=== PATIENT | male | born 1975 | race Caucasian/White ===

== ENCOUNTER 2022-05-24 13:56 | Day surgery (SDC) | payer BC ==
[~2022-05-24] VITALS: Ht 173 cm; Wt 86.0 kg
[2022-05-24 14:29] LABS: BASOPHILS % (AUTO) 0 % (0-10); EOSINOPHILS # (AUTO) 0.1 10^3/uL (0.0-0.3); EOSINOPHILS % (AUTO) 0 % (0-10); HEMATOCRIT 49 % (40-54); HEMOGLOBIN 17.4 g/dL (13.3-17.7); LYMPHOCYTES # (AUTO) 1.3 10^3/uL (1.0-4.0); LYMPHOCYTES % (AUTO) 9 % (12-44); MEAN CORPUSCULAR HEMOGLOBIN 30 pg (25-34); MEAN CORPUSCULAR HGB CONC 35 g/dL (32-36); MEAN CORPUSCULAR VOLUME 86 fL (80-99); MONOCYTES # (AUTO) 0.8 10^3/uL (0.0-1.0); MONOCYTES % (AUTO) 6 % (0-12); NEUTROPHILS # (AUTO) 12.5 10^3/uL (1.8-7.8); NEUTROPHILS % (AUTO) 85 % (42-75); PLATELET COUNT 313 10^3/uL (130-400); WHITE BLOOD COUNT 14.8 10^3/uL (4.3-11.0)
[2022-05-24] MEDS ORDERED: ONDANSETRON 4 MG/2 ML (SDV) Z0FRAN IVP ONE (14:30)
[2022-05-24] MEDS ORDERED: NS IV 1000 ML 1,000 ML IV SCH (14:30)
[2022-05-24] MEDS ORDERED: fentaNYL INJ 100 MCG/2 ML AMP IVP ONE ×3 (14:30→15:45)
[2022-05-24 14:34] LABS: ALBUMIN 4.7 GM/DL (3.2-4.5); CHLORIDE 102 MMOL/L (98-107); POTASSIUM 4.2 MMOL/L (3.6-5.0); SODIUM 137 MMOL/L (135-145)
[2022-05-24 14:35] LABS: CALCIUM 9.6 MG/DL (8.5-10.1)
[2022-05-24 14:36] LABS: GLUCOSE 108 MG/DL (70-105)
[2022-05-24 14:37] LABS: TOTAL PROTEIN 7.7 GM/DL (6.4-8.2)
[2022-05-24 14:38] LABS: BILIRUBIN,TOTAL 1.3 MG/DL (0.1-1.0); CARBON DIOXIDE 22 MMOL/L (21-32)
--- NOTE | 2022-05-24 14:38 | ED General ---
General Chief Complaint: Abdominal/GI Problems Stated Complaint: BACK/ABD PAIN,CRAMPING Nursing Triage Note: PT STATES UPPER ABD AND BACK PAIN/CRAMPING, EPISODES OF TACHYCARDIA EVERY NOW AND THEN FOR ABOUT A MONTH. NO SLEEP FOR 2 DAYS, [place] Source of Information: Patient Exam Limitations: No Limitations (JESSICA SPAULDING MED STUDENT) History of Present Illness Date Seen by Provider: May 24, 2022 Time Seen by Provider: 14:26 Initial Comments Sebastian Padilla is a 46 yo male who presents for epigastric abdominal pain/cramping and palpitations. Pt has no past medical hx and takes no medications. Pt reports [place] and started having sharp cramping epigastric and back pain last night, so he got a cab back here today to seek medical care. He has never had pain like this before and rates it a 10/10. He has associated nausea and vomiting with the abdominal and back pain. He states the pain is constant and he got no sleep last night. He tried Tums and Aleve with no relief. Nothing makes the pain worse. He denies any changes to bowel habits. He had a BM this morning that was normal for him. He last ate a sandwich yesterday and denies eating or drinking anything abnormal. Denies fever, chills, recent illness or sick contacts. Pt has hx of acid reflux and heartburn when eating spicy foods, but not regularly and he has never taken anything for this. Pt reports he has also had heart palpitations for the last year that are intermittent and associated with lightheadedness. When this occurs he has to sit down because he feels like he is going to pass out. Pt denies chest pain with these episodes. Pt denies any hx of cardiovascular disease in himself or family. He does not regularly follow up with a PCP and can't recall the last time he saw anyone. Timing/Duration: 1 Day Associated Systoms: Nausea/Vomiting (JESSICA SPAULDING MED STUDENT) Allergies and Home Medications Allergies Coded Allergies: No Known Drug Allergies (Unverified , 05/24/22) Patient Home Medication List Home Medication List Reviewed: Yes (BRIANNA RIOS MD) Review of Systems Review of Systems Constitutional: No chills, No fever EENTM: No blurred vision, No vision loss Respiratory: No cough, No short of breath Cardiovascular: No chest pain; palpitations Gastrointestinal: abdominal pain; No constipation, No diarrhea; nausea, vomiting Genitourinary: No dysuria, No frequency Musculoskeletal: back pain; No joint swelling Skin: No lesions, No lumps, No rash; other Psychiatric/Neurological: Denies Headache, Denies Numbness, Denies Weakness Hematologic/Lymphatic: No Symptoms Reported Immunological/Allergic: no symptoms reported (JESSICA SPAULDING) Past Qtbatrc-Uccqje-Drzphi Hx Patient Social History Tobacco Use?: No Substance use?: No Alcohol Use?: No (JESSICA SPAULDING STUDENT) Past Medical History Surgery/Hospitalization HX: NO MEDICAL HX REPORTED (JESSICA SPAULDING) Physical Exam Vital Signs Vital Signs - First Documented 05/24/22 14:08 Temp 36.5 Pulse 93 Resp 18 B/P (MAP) 140/106 (117) Pulse Ox 98 O2 Delivery Room Air (BRIANNA RIOS MD) Vital Signs Capillary Refill : (JESSICA SPAULDING) Height, Weight, BMI Height: '" Weight: lbs. oz. kg; 28.00 BMI Method: General Appearance: No Apparent Distress, WD/WN HEENT: PERRL/EOMI Neck: Full Range of Motion, Normal Inspection Respiratory: Chest Non Tender, Lungs Clear Cardiovascular: No Murmur, Tachycardia Gastrointestinal: Normal Bowel Sounds, Non Tender, Guarding, Tenderness (mildly tender to palpation in epigastric region) Back: Normal Inspection, Vertebral Tenderness (T6-T8 tenderness to palpation) Extremity: Non Tender, No Pedal Edema Neurologic/Psychiatric: Alert, Oriented x3, Normal Mood/Affect Skin: Normal Color, Warm/Dry Lymphatic: No Adenopathy (JESSICA SPAULDING [email or web address] STUDENT) Progress/Results/Core Measures Suspected Sepsis SIRS Temperature: Pulse: 93 Respiratory Rate: 18 Blood Pressure 140 /106 Mean: 117 (JESSICA SPAULDING [email or web address] STUDENT) Results/Orders Lab Results Laboratory Tests Test 05/24/22 14:14 05/24/22 14:50 Range/Units White Blood Count 14.8 H 4.3-11.0 10^3/uL Red Blood Count 5.73 H 4.30-5.52 10^6/uL Hemoglobin 17.4 13.3-17.7 g/dL Hematocrit 49 40-54 % Mean Corpuscular Volume 86 80-99 fL Mean Corpuscular Hemoglobin 30 25-34 pg Mean Corpuscular Hemoglobin Concent 35 32-36 g/dL Red Cell Distribution Width 12.6 10.0-14.5 % Platelet Count 313 130-400 10^3/uL Mean Platelet Volume 8.0 L 9.0-12.2 fL Immature Granulocyte % (Auto) 1 % Neutrophils (%) (Auto) 85 H 42-75 % Lymphocytes (%) (Auto) 9 L 12-44 % Monocytes (%) (Auto) 6 0-12 % Eosinophils (%) (Auto) 0 0-10 % Basophils (%) (Auto) 0 0-10 % Neutrophils # (Auto) 12.5 H 1.8-7.8 10^3/uL Lymphocytes # (Auto) 1.3 1.0-4.0 10^3/uL Monocytes # (Auto) 0.8 0.0-1.0 10^3/uL Eosinophils # (Auto) 0.1 0.0-0.3 10^3/uL Basophils # (Auto) 0.0 0.0-0.1 10^3/uL Immature Granulocyte # (Auto) 0.1 0.0-0.1 10^3/uL Neutrophils % (Manual) 83 % Lymphocytes % (Manual) 9 % Monocytes % (Manual) 5 % Eosinophils % (Manual) 1 % Band Neutrophils 2 % Blood Morphology Comment NORMAL Sodium Level 137 135-145 MMOL/L Potassium Level 4.2 3.6-5.0 MMOL/L Chloride Level 102 98-107 MMOL/L Carbon Dioxide Level 22 21-32 MMOL/L Anion Gap 13 5-14 MMOL/L Blood Urea Nitrogen 11 7-18 MG/DL Creatinine 0.81 0.60-1.30 MG/DL Estimat Glomerular Filtration Rate 111 BUN/Creatinine Ratio 14 Glucose Level 108 H 70-105 MG/DL Calcium Level 9.6 8.5-10.1 MG/DL Corrected Calcium 8.5-10.1 MG/DL Total Bilirubin 1.3 H 0.1-1.0 MG/DL Aspartate Amino Transf (AST/SGOT) 32 5-34 U/L Alanine Aminotransferase (ALT/SGPT) 56 H 0-55 U/L Alkaline Phosphatase 51 40-136 U/L Total Protein 7.7 6.4-8.2 GM/DL Albumin 4.7 H 3.2-4.5 GM/DL Lipase 21 8-78 U/L Urine Color YELLOW Urine Clarity CLEAR Urine pH 5.5 5-9 Urine Specific Hawkins 1.010 L 1.016-1.022 Urine Protein NEGATIVE NEGATIVE Urine Glucose (UA) NEGATIVE NEGATIVE Urine Ketones 1+ H NEGATIVE Urine Nitrite NEGATIVE NEGATIVE Urine Bilirubin NEGATIVE NEGATIVE Urine Urobilinogen 0.2 < = 1.0 MG/DL Urine Leukocyte Esterase TRACE H NEGATIVE Urine RBC (Auto) NEGATIVE NEGATIVE Urine RBC NONE /HPF Urine WBC RARE /HPF Urine Crystals NONE /LPF Urine Bacteria NEGATIVE /HPF Urine Casts NONE /LPF Urine Mucus NEGATIVE /LPF Urine Culture Indicated NO (BRIANNA RIOS MD) My Orders Orders - BRIANNA RIOS MD Comprehensive Metabolic Panel (05/24/22 14:22) Lipase (05/24/22 14:22) Ua Culture If Indicated (05/24/22 14:22) Cbc With Automated Diff (05/24/22 14:22) Fentanyl Inj (Sublimaze Injection) (05/24/22 14:30) Ns Iv 1000 Ml (Sodium Chloride 0.9%) (05/24/22 14:30) Ondansetron Injection (Zofran Injectio (05/24/22 14:30) Manual Differential (05/24/22 14:14) Ct Abdomen/Pelvis Wo (05/24/22 14:51) Fentanyl Inj (Sublimaze Injection) (05/24/22 15:45) (BRIANNA RIOS MD) Medications Given in ED Current Medications Medications Dose Ordered Sig/Dio Route Start Time Stop Time Status Last Admin Dose Admin Fentanyl Citrate 50 mcg ONCE ONCE IVP 05/24/22 14:30 05/24/22 14:31 DC 05/24/22 14:35 50 MCG Fentanyl Citrate 50 mcg ONCE ONCE IVP 05/24/22 15:45 05/24/22 15:46 DC 05/24/22 15:49 50 MCG Ketorolac Tromethamine 15 mg ONCE ONCE IVP 05/24/22 15:45 05/24/22 15:46 DC 05/24/22 15:49 15 MG Ondansetron HCl 8 mg ONCE ONCE IVP 05/24/22 14:30 05/24/22 14:31 DC 05/24/22 14:35 8 MG (BRIANNA RIOS MD) Vital Signs/I&O 05/24/22 05/24/22 14:08 14:35 Temp 36.5 36.5 Pulse 93 Resp 18 B/P (MAP) 140/106 (117) Pulse Ox 98 O2 Delivery Room Air (BRIANNA RIOS MD) Vital Signs/I&O Capillary Refill : (JESSICA SPAULDING MED STUDENT) Blood Pressure Mean: 117 Progress Note : Time: 16:18 Progress Note 46-year-old male presents with a chief complaint of epigastric abdominal pain, nausea vomiting. Last oral intake was some fluids at around 10:00 this morning. Has not eaten since yesterday evening. No prior surgeries on his abdomen. No fevers, chills. No diarrhea, black or bloody stools. No complaints. Past medical history significant for GERD and he takes as needed Tums. He did try some Aleve without relief of symptoms. He is also been experiencing some palpitations over the course of the last year. No chest pain today. No shortness of breath. Evaluation in the ED includes physical exam, basic laboratory studies and CT of the abdomen and pelvis without contrast. Findings show a leukocytosis of 14,000 with a mildly elevated total bilirubin and CT positive findings for pericholecystic fluid. Case was discussed with Dr. GEORGE, recommends admission, clear liquids until midnight, Cipro Flagyl pain management. He will evaluate tomorrow morning. Patient has been advised of the findings and is agreeable with admission. (BRIANNA RIOS MD) Departure Communication (Admissions) Time/Spoke to Admitting Phy: 16:[address] George; fluids, clears, NPO after mn, cipro flagyl (BRIANNA RIOS MD) Impression Primary Impression: Acute cholecystitis Disposition: HOME, SELF-CARE Condition: Stable Admissions Decision to Admit Reason: Admit from ER (General) Decision to Admit/Date: May 24, 2022 Time/Decision to Admit Time: 16:18 (BRIANNA RIOS MD) Departure-Patient Inst. Referrals: NO,LOCAL PHYSICIAN (PCP/Family) Primary Care Physician Verification and Attestation of Medical Student E/M Service A medical student performed and documented this service in my presence. I reviewed and verified all information documented by the medical student and made modifications to such information, when appropriate. I personally performed the physical exam and medical decision making. Brianna Rios, May 24, 2022,16:20 (BRIANNA RIOS MD) JESSICA SPAULDING MED STUDENT May 24, 2022 14:38 BRIANNA RIOS MD May 24, 2022 16:20
[2022-05-24 14:40] LABS: ALKALINE PHOSPHATASE 51 U/L (40-136); CREATININE SERUM 0.81 MG/DL (0.60-1.30); GFR ESTIMATED 111
[2022-05-24 14:41] LABS: BUN/CREATININE RATIO 14
[2022-05-24 14:43] LABS: ALANINE AMINOTRANSFERASE 56 U/L (0-55); LIPASE 21 U/L (8-78)
[2022-05-24 14:47] LABS: BAND NEUTROPHILS 2 %; EOSINOPHILS % (MANUAL) 1 %; LYMPHOCYTES % (MANUAL) 9 %; MONOCYTES % (MANUAL) 5 %; NEUTROPHILS % (MANUAL) 83 %; RBC MORPH NORMAL
[2022-05-24 15:17] LABS: COLOR,URINE YELLOW
[2022-05-24 15:18] LABS: BILIRUBIN,URINE NEGATIVE (NEGATIVE); CLARITY,URINE CLEAR; GLUCOSE, URINE (UA) NEGATIVE (NEGATIVE); KETONES,URINE 1+ (NEGATIVE); NITRITE,URINE NEGATIVE (NEGATIVE); PH,URINE 5.5 (5-9); PROTEIN,URINE NEGATIVE (NEGATIVE)
[2022-05-24 15:19] LABS: BACTERIA,URINE NEGATIVE /HPF; LEUKOCYTE ESTERASE ,URINE TRACE (NEGATIVE); WBC,URINE RARE /HPF
--- NOTE | 2022-05-24 15:30 | Diagnostic Imaging Report ---
CT ABDOMEN/PELVIS WO TECHNIQUE: Unenhanced CT imaging of the abdomen and pelvis was performed. 2-D reformats are created and submitted for interpretation. Automatic exposure controls were utilized to optimize patient dose. INDICATION: Severe epigastric pain. COMPARISON: None available. FINDINGS: Evaluation of the abdominal viscera is suboptimal without contrast. Lower chest: The lung bases are clear. No pericardial or pleural effusion. Peritoneum: No free intraperitoneal air or fluid. Liver and biliary system: Unenhanced liver is normal. Mild pericholecystic fluid and/or inflammation. No radiopaque gallstones or biliary duct dilation. Spleen and Pancreas: Spleen is normal. Unenhanced pancreas is grossly normal. Adrenals: Normal. tract: There is 6 mm nonobstructing stone in the mid aspect of the left kidney. No ureteral stones or obstructive uropathy. The urinary bladder is normally filled. Prostate is upper limits of normal in size. GI tract: Stomach is decompressed. No bowel obstruction. No pericolonic inflammatory changes. Normal appendix. Vasculature and Lymph nodes: Normal caliber aorta. No abdominal or pelvic lymphadenopathy. Musculoskeletal: No concerning osseous lesion. IMPRESSION: 1. CT features suggest acute cholecystitis. Correlation for right upper quadrant pain is suggested. 2. Nonobstructing 6 mm left renal stone. Dictated by: Dictated on workstation # [id number]
[2022-05-24] MEDS ORDERED: KETOROLAC 30 MG/ML VIAL IVP ONE (15:45)
[2022-05-24 17:49] VITALS: BP 140/106
[2022-05-24] MEDS ORDERED: RT-ALBUTEROL SULF 2.5 MG/3 ML PRE-MIX VIAL INH PRN (18:00)
[2022-05-24] MEDS ORDERED: ONDANSETRON 4 MG/2 ML (SDV) Z0FRAN IV PRN (18:15)
[2022-05-24] MEDS: CIPROFLOXACIN IV 400MG/200ML 200 ML IV SCH (18:24)
[2022-05-24] MEDS: NS IV 1000 ML 1,000 ML IV SCH (18:24)
[2022-05-24] MEDS: metroNIDAZOLE 500 MG/100 ML IVPB (PRE-MIX) IV SCH (18:24)
[2022-05-24] MEDS: morphine INJ 10 MG/ML 1ML (SYR OR VIAL) IV PRN (18:50)
--- NOTE | 2022-05-24 19:01 | Progress Note-Pre Operative ---
Pre-Operative Progress Note Date of Available H&P: May 24, 2022 Date H&P Reviewed: May 24, 2022 Time H&P Reviewed: 19:00 History & Physical: No changes noted Pre-Operative Diagnosis: acute cholecystitis JONI ESTRADA MD May 24, 2022 19:01
[2022-05-24] MEDS ORDERED: HYDR-3817 PO (19:04)
--- NOTE | 2022-05-24 19:05 | Discharge Inst-Surgical ---
D/C Lap Instructions-NATALIE New, Converted, or Re-Newed RX: RX on Chart Follow Up Appt in 2 weeks Activity as tolerated No driving for 24 hours No driving while on pain medications Incentive Spirometry use every 2 hours while awake Regular Diet Symptoms to Report: Fever over 101 degree F, Nausea/Vomiting Infection Signs and Symptoms to report: Increased redness, Foul odor of wound, Increased drainage Bathing instructions: May shower Operative Area Clean/Dry; Keep incision clean/dry If any problems/questions: Contact your physician or go to Emergency Room JONI ESTRADA MD May 24, 2022 19:05
--- NOTE | 2022-05-24 19:14 | HISTORY AND PHYSICAL ---
DATE OF SERVICE: HISTORY OF PRESENT ILLNESS: The patient is a 46-year-old male who presented to the Emergency Department with epigastric and right upper abdominal quadrant pain. He reports that he works for the [employer] and developed epigastric pain as well as in the right upper abdominal quadrant with radiation towards the back starting last night. He states that this pain was significant, and he did have one episode of associated nausea and vomiting. He tried to sleep last night; however, could not due to the pain. He tried ixwk-ulx-kninaxr antacids with no relief. Upon further questioning, he reports that he does have a history of gastroesophageal reflux disease; however, this is only food dependent and only when he eats excessive amounts of spicy foods and not on a regular basis. A CT scan was performed, which did show gallbladder wall thickening as well as pericholecystic fluid consistent with acute cholecystitis. PAST MEDICAL HISTORY: None. PAST SURGICAL HISTORY: None. ALLERGIES: NO KNOWN DRUG ALLERGIES. MEDICATIONS: None. SOCIAL HISTORY: Negative smoke, negative alcohol. FAMILY HISTORY: Noncontributory. PHYSICAL EXAMINATION: VITAL SIGNS: Temperature 36.5, blood pressure 140/104, pulse 93, respirations 18, pulse ox 98% on room air. REVIEW OF SYSTEMS: He is a well-nourished male currently in no acute distress. He is not experiencing any shortness of breath or difficulty breathing. No chest pain, palpitations or diaphoresis. Episode of nausea and vomiting. No hematemesis, no coffee ground emesis. Did have a bowel movement today, which was normal in consistency and color. No fever or chills, no recent inadvertent weight loss. All other review of systems negative. PHYSICAL EXAMINATION: This will be ascertained in the a.m. The rest of the history and physical information was accrued through the emergency room physician as well as the patient's electronic medical records. LABORATORY DATA: WBC 14.8, hemoglobin 17.4, hematocrit 49, platelets 313, BUN 11, creatinine 0.81, total bilirubin 1.3. ASSESSMENT AND PLAN: A 46-year-old male with acute cholecystitis. The natural history of this disease process will be explained to the patient as well as the risks and benefits of surgery and if he agrees, we will proceed with a laparoscopic cholecystectomy on this admission. Job ID: [id number] DocumentID: [id number] Dictated Date: 05/24/2022 19:00:58 Wholesale Account Manager Date: 05/24/2022 19:13:52 Dictated By: JONI ESTRADA MD
[2022-05-24] MEDS ORDERED: HYDROcodone/APAP 7.5 MG/325 MG (LORTAB, LORCET PLUS) TABLET PO PRN (19:15)
[2022-05-24 19:37] VITALS: BP 148/89
[2022-05-25] VITALS (10 sets, daily range): BP systolic 107–138; BP diastolic 62–88
[2022-05-25] MEDS: metroNIDAZOLE 500 MG/100 ML IVPB (PRE-MIX) IV SCH ×2 (03:43→10:52)
[2022-05-25] MEDS: NS IV 1000 ML 1,000 ML IV SCH ×3 (03:44→18:30)
[2022-05-25] MEDS: CIPROFLOXACIN IV 400MG/200ML 200 ML IV SCH ×2 (06:22→18:26)
[2022-05-25] MEDS: morphine INJ 10 MG/ML 1ML (SYR OR VIAL) IV PRN ×4 (06:40→18:34)
[2022-05-25] MEDS ORDERED: CALC10009 PO (09:54)
[2022-05-25] MEDS ORDERED: NAPR220T66 PO (09:54)
[2022-05-25] MEDS ORDERED: LACTATED RINGERS 1,000 ML IV PRN (12:45)
[2022-05-25] MEDS ORDERED: LIDOCAINE/EPI 2% 1:200,00 (XYLOCAINE) 20 ML VIAL ONE (13:58)
[2022-05-25] MEDS ORDERED: MIDAZOLAM 2 MG/2 ML (VERSED) VIAL ONE (15:41)
[2022-05-25] MEDS ORDERED: fentaNYL INJ 100 MCG/2 ML AMP ONE (15:41)
[2022-05-25] MEDS ORDERED: SEVOFLURANE (ULTANE) 15 ML INHAL SOLN ONE ×4 (15:41→17:07)
[2022-05-25] MEDS ORDERED: proPOfol 200 MG/20 ML (DIPRIVAN) VIAL IV ONE (15:41)
[2022-05-25] MEDS ORDERED: ROCURONIUM 10 MG/ML 5 ML SYRINGE IV ONE (15:41)
[2022-05-25] MEDS ORDERED: ONDANSETRON 4 MG/2 ML (SDV) Z0FRAN ONE (15:41)
[2022-05-25] MEDS ORDERED: LIDOCAINE PF 2% 5 ML (XYLOCAINE) VIAL ONE (15:41)
[2022-05-25] MEDS ORDERED: ceFAZolin INJECTION 1,000 MG VIAL IV ONE (16:15)
[2022-05-25] MEDS ORDERED: LIDOCAINE/EPI 2% 1:200,00 (XYLOCAINE) 10 ML VIAL INJ ONE (16:42)
--- NOTE | 2022-05-25 17:10 | Progress Note-Post Operative ---
Post-Operative Progess Note Surgeon (s)/Shearer Operator (s) Surgeon JONI ESTRADA MD Shearer Operator: char barnes AUTOMAT[employer]IN MACHINE MECHANIC Pre-Operative Diagnosis acute cholecystitis Post-Operative Diagnosis same Procedure & Operative Findings Date of Procedure 05/25/22 Procedure Performed/Findings laparoscopic cholecystectomy Anesthesia Type get Estimated Blood Loss Estimated blood loss (mL): minimal Specimens/Packing Specimens Removed gallbladder JONI ESTRADA MD May 25, 2022 17:10
--- NOTE | 2022-05-25 17:17 | Progress Note ---
Standard Progress Note Progress Notes/Assess & Plan Date Seen by a Provider: May 25, 2022 Time Seen by a Provider: 10:00 Progress/Assessment & Plan PE: chest-clear heart-regular extr-no LE edema, neg homans abd-soft, RUQ abd pain skin-warm, dry JONI ESTRADA MD May 25, 2022 17:17
--- NOTE | 2022-05-25 17:24 | Anesthesia-General Post-Op ---
General Patient Condition Mental Status/LOC: Same as Preop Cardiovascular: Satisfactory Nausea/Vomiting: Absent Respiratory: Satisfactory Pain: Controlled Complications: Absent Post Op Complications Complications None Follow Up Care/Instructions Patient Instructions None needed. Anesthesia/Patient Condition Patient Condition Patient is doing well, no complaints, stable vital signs, no apparent adverse anesthesia problems. No complications reported per nursing. BREEZY ARVIZU CRNA May 25, 2022 17:24
[2022-05-25] MEDS ORDERED: MEPERIDINE (DEMEROL) INJ 50 MG/ML IVP ONE (17:30)
[2022-05-25] MEDS ORDERED: morphine INJ 10 MG/ML 1ML (SYR OR VIAL) IVP ONE (17:30)
[2022-05-25] MEDS ORDERED: ONDANSETRON 4 MG/2 ML (SDV) Z0FRAN IVP PRN (17:30)
[2022-05-25] MEDS ORDERED: fentaNYL INJ 100 MCG/2 ML AMP IVP ONE (17:30)
--- NOTE | 2022-05-25 22:09 | OPERATIVE REPORT ---
DATE OF SERVICE: 05/25/2022 PREOPERATIVE DIAGNOSIS: Acute acalculous cholecystitis. POSTOPERATIVE DIAGNOSIS: Acute calculous cholecystitis. PROCEDURE: Laparoscopic cholecystectomy. SURGEON: Joni Estrada MD. CARPENTER REPAIRER: Charly Storm APRN. ANESTHESIA: General endotracheal. ESTIMATED BLOOD LOSS: Minimal. FINDINGS: Gallbladder wall thickening, distended gallbladder, large gallstone. DISPOSITION: The patient tolerated the procedure well. INDICATIONS: The patient is a 46-year-old male who presented to the Emergency Department with epigastric and right upper abdominal quadrant pain. He reports that he works for the [employer] and developed the abdominal pain starting the night previous. He states that the pain was significant, and he also had an associated episode of nausea and vomiting and was unable to sleep. He tried [id number]-ucfzbvg antacids without any relief. Upon further questioning, he had reported a history of gastroesophageal reflux disease. However, he also has noticed with some types of meals, he did have abdominal discomfort; however, not this severe. A CT scan did show gallbladder wall thickening and pericholecystic fluid consistent with an acute cholecystitis. DESCRIPTION OF PROCEDURE: The patient was brought to the operating room, laid supine on the table. After adequate IV pain and sedative medications and general endotracheal intubation, the abdomen was prepped and draped in standard surgical fashion. A 0.5% Marcaine with epinephrine was then used to anesthetize overlying skin in the left upper abdominal quadrant and a transverse skin incision made using a 15 blade. An 0 silk suture was applied to the medial aspect of incision for retraction and a Veress needle inserted with a low opening pressure of 0 mmHg and the abdomen was then insufflated to 15 mmHg pressure. The Veress needle removed, and a 5 mm XCEL trocar placed followed by a 5 mm 45-degree angle laparoscope visualizing the peritoneal cavity. A 4-quadrant abdominal exploration was performed. There was a distended gallbladder with gallbladder wall thickening. Liver, small bowel and stomach appeared normal. Under direct visualization, we then proceeded to place a supraumbilical 10 mm port after the skin and peritoneal lining were anesthetized using 0.5% Marcaine with epinephrine and a transverse skin incision made using a 15 blade. In a similar manner, a right upper abdominal quadrant 5 mm port was placed. The gallbladder was then decompressed with a laparoscopic needle and suction. The patient was then placed in reverse Trendelenburg position as well as plane right side up, left side down. The fundus of the gallbladder was then retracted anteriorly and superiorly. The hepatoduodenal ligament was then dissected using blunt dissection as well as electrocautery with a hook instrument as well as a [place] dissector. The entire critical view of safety was identified including the triangle of Calot as well as the cystic duct and artery as the only two structures going into the gallbladder as well as the cystic plate behind the proximal gallbladder. A timeout was then taken, and the cystic duct and artery were then clipped proximally, distally and cut with EndoShears. The gallbladder was then dissected off the liver bed using cautery on the hook instrument with visualization of good hemostasis as well as no leaking ducts of Luschka. The gallbladder was removed through the 10 mm port site using EndoCatch bag. The 10 mm port site fascia and peritoneum were then closed under direct visualization using a Malik-Sarina device and an 0 Vicryl suture. The abdomen was then desufflated and remaining ports removed. All skin incisions were closed using 4-0 Monocryl running subcuticular sutures. Wounds were then cleaned and covered with Dermabond. The patient tolerated the procedure well. We will start IV normal pain medication as well as a clear liquid diet. Once he is tolerating clears, has good pain control with oral pain medications, ambulating well, we will discharge him home where he will be instructed to do no heavy lifting or exertion for the next two weeks. Job ID: [id number] DocumentID: [id number] Dictated Date: 05/25/2022 17:16:16 Welt Sole Layer Date: 05/25/2022 22:08:02 Dictated By: JONI ESTRADA MD
== END 2022-05-25 19:50 | disposition home or self-care (01) ==
LOC: ER 14:00 → INTOOBSV 16:22 → 4TH 16:22 → UNDOADMOB 16:22 → SDC 16:22 → UNDODISOB 05-25 19:50 → SDC 05-25 19:50
PROVIDERS: ATTEND Surgery
DX: K80.12 Calculus of gallbladder with acute and chronic cholecystitis without obstruction (principal); K21.9 Gastro-esophageal reflux disease without esophagitis
CPT/HCPCS: 36415; 74176; 80053; 81000; 83690; 85007; 85027; 87081; 94760; 96361; 96374; 96375; 96376